=== PATIENT | female | born 1950 | race Hispanic/Latino ===

== ENCOUNTER 2024-06-07 14:48 | Inpatient (IN) | payer MEDICARE, OTHER ==
[2024-06-07 15:30] LABS: #Basophils 0.03 10x3/uL (0.0-0.2); %Basophils 0.3 % (0.0-1.0); %Monocytes 6.5 % (0.0-10.0); %Neutrophils 79.7 % (42.0-75.0); Hematocrit 32.2 % (36.0-47.0); Hemoglobin 9.9 g/dL (12.0-16.0); Mean Corpuscular HGB CONC 30.7 g/dL (32.0-36.0); Mean Corpuscular Hemoglobin 33.3 pg (27.0-31.0); Mean Corpuscular Volume 108.4 fL (78.0-98.0); Mean Platelet Volume 11.9 fL (7.4-10.4); Platelet Count 155 10x3/uL (130-400); RBC Distribution Width 15.5 % (11.5-14.5); Red Blood Cell (RBC) Count 2.97 mill/uL (4.20-5.40)
[2024-06-07 15:51] LABS: ALT (SGPT) 19 U/L (8-55); AST (SGOT) 27 U/L (5-34); Albumin 2.9 g/dL (3.4-4.8); Alkaline Phosphatase 82 U/L (40-110); Anion Gap 21 mmol/L (10-20); BUN (Urea Nitrogen) 42 mg/dL (9.8-20.1); Bilirubin, Total 0.5 mg/dL (0.2-1.2); Calc. Creatinine Clearance 0 mL/min (70-130); Carbon Dioxide 26 mmol/L (23-31); Chloride 100 mmol/L (98-107); Estimated GFR 7; Globulin 3.4 g/dL (2.4-3.5); Glucose 93 mg/dL (83-110); Magnesium 2.4 mg/dL (1.6-2.6); Protein, Total 6.3 g/dL (5.8-8.1); Sodium 142 mmol/L (136-145)
[2024-06-07 15:57] LABS: Troponin I 0.064 ng/mL (< 0.028)
[2024-06-07] MEDS ORDERED: dilTIAZem 25 MG/5 ML VIAL ONE (17:20)
[2024-06-07] MEDS ORDERED: Aspirin Chewable 81 MG TAB ONE (17:20)
[2024-06-07] MEDS ORDERED: dilTIAZem 125 MG/25 ML SDV ONE (17:21)
[2024-06-07] MEDS ORDERED: Cefepime 2 GM VIAL ONE (18:38)
[2024-06-07] MEDS ORDERED: Sodium Chloride 0.9% 100 ML ONE (18:38)
[2024-06-07 19:43] LABS: Troponin I 0.067 ng/mL (< 0.028)
[2024-06-08 00:14] VITALS: BMI 32.0
[2024-06-08] MEDS: Vancomycin (BATCH) 1.5 GM in Premix 1 BAG IVPB SCH (00:45)
[2024-06-08] MEDS: Haloperidol Lactate 5 MG/ML VIAL SLOW IVP SCH (01:02)
[2024-06-08] MEDS ORDERED: Ondansetron ODT 4 MG TAB PO PRN (01:30)
[2024-06-08] MEDS ORDERED: Calcium Carbonate 500 MG ChewTAB PO PRN (01:30)
[2024-06-08] MEDS ORDERED: Ondansetron PF 4 MG/2 ML Vial IVP PRN (01:30)
[2024-06-08] MEDS ORDERED: Acetaminophen 650 MG Suppository PR PRN (01:30)
[2024-06-08] MEDS ORDERED: Diltiazem HCl/D5W 125 MG in Premix 1 BAG IVPB SCH (01:45)
[2024-06-08] MEDS ORDERED: dilTIAZem 125 MG in Sodium Chloride 0.9% 100 ML IVPB SCH (01:45)
[2024-06-08 04:16] LABS: #Basophils 0.04 10x3/uL (0.0-0.2); %Basophils 0.4 % (0.0-1.0); %Eosinophils 0.4 % (0.0-10.0); %Lymphocytes 11.1 % (21.0-51.0); %Monocytes 5.9 % (0.0-10.0); %Neutrophils 81.5 % (42.0-75.0); Hematocrit 32.6 % (36.0-47.0); Hemoglobin 9.9 g/dL (12.0-16.0); Mean Corpuscular HGB CONC 30.4 g/dL (32.0-36.0); Mean Corpuscular Hemoglobin 33.9 pg (27.0-31.0); Mean Corpuscular Volume 111.6 fL (78.0-98.0); Mean Platelet Volume 12.1 fL (7.4-10.4); Platelet Count 177 10x3/uL (130-400); RBC Distribution Width 15.7 % (11.5-14.5); Red Blood Cell (RBC) Count 2.92 mill/uL (4.20-5.40)
[2024-06-08 04:38] LABS: Anion Gap 25 mmol/L (10-20); BUN (Urea Nitrogen) 48 mg/dL (9.8-20.1); Calc. Creatinine Clearance 9 mL/min (70-130); Calcium 6.8 mg/dL (7.8-10.44); Carbon Dioxide 22 mmol/L (23-31); Chloride 100 mmol/L (98-107); Estimated GFR 7; Glucose 77 mg/dL (83-110); Sodium 142 mmol/L (136-145)
[2024-06-08] MEDS: CALCIUM GLUC 1 GM/NS 50 ML 1 GM in Premix 1 BAG IVPB SCH (05:18)
[2024-06-08] MEDS: Acetaminophen 325 MG TAB PO SCH (06:09)
[2024-06-08] MEDS: Calcium Gluc 4.6 MEQ/10 ML (100 MG/ML) SLOW IVP ONE (06:09)
[2024-06-08] MEDS ORDERED: Ventilator Sedation Protocol 1 EACH FS PRN (07:12)
[2024-06-08] MEDS ORDERED: NOREPINEPHRINE 8 MG/250 ML-D5W 250 ML IVPB SCH (07:15)
[2024-06-08 07:30] LABS: Hematocrit 31.1 % (36.0-47.0)
[2024-06-08] MEDS ORDERED: Dextrose 10% in Water 1,000 ML IV SCH (07:30)
[2024-06-08] MEDS ORDERED: Morphine 2 MG/ML VIAL SLOW IVP PRN (07:45)
[2024-06-08] MEDS ORDERED: Propofol BOLUS 1,000 MG/100 ML VIAL IV PRN ×2 (07:45→09:00)
[2024-06-08] MEDS ORDERED: Fentanyl CADD 100 ML IV SCH (07:45)
[2024-06-08] MEDS ORDERED: Fentanyl BOLUS 250 ML IVPB PRN ×2 (07:45→09:00)
[2024-06-08] MEDS ORDERED: Propofol 1,000 MG/100 ML VIAL IV PRN ×2 (07:45→09:00)
[2024-06-08] MEDS ORDERED: Vancomycin Diaylsis Sliding Scale (Wt 71-99) FS SCH (07:45)
[2024-06-08 07:54] LABS: Actual Bicarbonate (HCO3a) 15.1 mEq/L (22-28); Base Excess (BEa) -10.9 mEq/L (-2.0 to +3.0); CO2 Tension 33.8 mmHg (35.0-45.0); Calcium, Ionized (arterial) 0.84 mmol/L (1.12-1.30); Hematocrit-ABG 29 % (36.0-47.0); Hemoglobin (Hb) 9.7 g/dL (12.0-16.0); O2 Tension (PaO2), arterial 334.1 mmHg (> 70.0); Potassium - ABG Lab 4.66 mmol/L (3.70-5.30); pH, Arterial 7.267 (7.35-7.45)
[2024-06-08 07:57] LABS: Puncture Site Right Brachial art
[2024-06-08 08:44] LABS: Hemoglobin 9.4 g/dL (12.0-16.0); Platelet Count 140 10x3/uL (130-400)
[2024-06-08] MEDS ORDERED: DISCONTINUE PREVIOUS NARCOTIC PAIN MEDICATIONS AND BENZODIAZEPINES FS SCH (09:00)
[2024-06-08] MEDS ORDERED: Vancomycin 1 GM in Sodium Chloride 0.9% 250 ML 300 ML IVPB SCH (09:00)
[2024-06-08] MEDS: Lorazepam 2 MG/ML VIAL SLOW IVP PRN ×2 (09:01→12:14)
[2024-06-08] MEDS: Famotidine 20 MG TAB PO SCH (09:04)
[2024-06-08] MEDS ORDERED: Dextrose 5% in Water 1,000 ML IV PRN (10:32)
[2024-06-08] MEDS ORDERED: Dextrose 50% Abboject 50 ML SYRINGE SLOW IVP PRN (10:32)
[2024-06-08] MEDS ORDERED: Glucagon 1 MG/ML KIT IM PRN (10:32)
[2024-06-08] MEDS ORDERED: Insulin Lispro 100 UNIT/ML 10 ML VIAL SC PRN (10:33)
[2024-06-08 10:39] LABS: HBSAB Concentration 49.83 mIU/mL; HBsAg Index 0.32 S/CO (0-0.99); Hep B Core Total Ab NONREACTIVE (NonReactive); Hep B Core Total Index 0.08 S/CO (0-0.79); Hep B Surf AB REACTIVE (NonReactive); Hep B Surf Ag NONREACTIVE S/CO (NonReactive); Hep C IgG Ab NONREACTIVE S/CO (NonReactive); Hep C Index 0.07 S/CO (0-0.79)
[2024-06-08] MEDS: Famotidine/PF 20 mg/2ml Vial SLOW IVP SCH (11:38)
[2024-06-08] MEDS: Aspirin 300 MG Suppository PR SCH (11:39)
[2024-06-08] MEDS: EPOETIN ALFA-EPBX (ESRD) 10,000 UNITS/ML VIAL SC SCH (12:25)
[2024-06-08] MEDS: Heparin 25,000 units/D5W 500 ML IVPB SCH (13:13)
[2024-06-08] MEDS: Amiodarone 150 MG in Dextrose 5% in Water 100 ML IVPB SCH (13:20)
[2024-06-08] MEDS: Amiodarone 450 MG in Dextrose 5% in Water 250 ML IVPB SCH (13:20)
[2024-06-08 13:33] LABS: Troponin I 0.315 ng/mL (< 0.028)
[2024-06-08] MEDS: Heparin 10,000 UNITS/ 10 ML VIAL SLOW IVP SCH (13:42)
[2024-06-08] MEDS: Fentanyl CADD 100 ML IV SCH (15:03)
[2024-06-08] MEDS: Cefepime 1 GM in Sodium Chloride 0.9% 100 ML IVPB SCH (17:42)
[2024-06-08 19:41] LABS: PTT 208.1 sec (22.9-36.1)
[2024-06-09 03:31] LABS: #Basophils 0.04 10x3/uL (0.0-0.2); %Basophils 0.3 % (0.0-1.0); %Eosinophils 0.3 % (0.0-10.0); %Lymphocytes 11.1 % (21.0-51.0); %Monocytes 4.6 % (0.0-10.0); Hematocrit 31.5 % (36.0-47.0); Hemoglobin 10.3 g/dL (12.0-16.0); Mean Corpuscular HGB CONC 32.7 g/dL (32.0-36.0); Mean Corpuscular Hemoglobin 33.6 pg (27.0-31.0); Mean Corpuscular Volume 102.6 fL (78.0-98.0); Mean Platelet Volume 11.9 fL (7.4-10.4); Platelet Count 181 10x3/uL (130-400); RBC Distribution Width 15.1 % (11.5-14.5); Red Blood Cell (RBC) Count 3.07 mill/uL (4.20-5.40)
[2024-06-09 03:54] LABS: ALT (SGPT) 53 U/L (8-55); AST (SGOT) 87 U/L (5-34); Albumin 2.3 g/dL (3.4-4.8); Alkaline Phosphatase 82 U/L (40-110); Anion Gap 22 mmol/L (10-20); BUN (Urea Nitrogen) 27 mg/dL (9.8-20.1); Bilirubin, Total 0.8 mg/dL (0.2-1.2); Calc. Creatinine Clearance 14 mL/min (70-130); Carbon Dioxide 21 mmol/L (23-31); Chloride 101 mmol/L (98-107); Estimated GFR 12; Globulin 2.6 g/dL (2.4-3.5); Glucose 83 mg/dL (83-110); Hemoglobin A1c 4.9 % (4.0-6.0); Magnesium 2.1 mg/dL (1.6-2.6); Phosphorus 2.6 mg/dL (2.3-4.7); Potassium 3.7 mmol/L (3.5-5.1); Protein, Total 4.9 g/dL (5.8-8.1); Sodium 140 mmol/L (136-145)
[2024-06-09 08:00] LABS: Actual Bicarbonate (HCO3a) 21.8 mEq/L (22-28); Base Excess (BEa) 2.3 mEq/L (-2.0 to +3.0); Calcium, Ionized (arterial) 0.88 mmol/L (1.12-1.30); Carboxyhemoglobin (COHb) 0.8 gm% (0.0-3.0); Hematocrit-ABG 33 % (36.0-47.0); Hemoglobin (Hb) 11.1 g/dL (12.0-16.0); O2 Tension (PaO2), arterial 112.3 mmHg (> 70.0); Potassium - ABG Lab 3.69 mmol/L (3.70-5.30)
[2024-06-09 08:05] LABS: CO2 Tension 20.5 mmHg (35.0-45.0); pH, Arterial 7.644 (7.35-7.45)
[2024-06-09 08:06] LABS: ALV-art Gradient 147.275 mmHg (0-20); Puncture Site Right Brachial art
[2024-06-09 08:17] LABS: Vancomycin, Trough 15.1 ug/mL
[2024-06-09] MEDS ORDERED: Aspirin 300 MG Suppository PR SCH (09:00)
[2024-06-09] MEDS ORDERED: Vancomycin Hemodialysis Sliding Scale FS SCH (10:30)
[2024-06-09] MEDS: Famotidine/PF 20 mg/2ml Vial SLOW IVP SCH (10:39)
[2024-06-09] MEDS: Famotidine 20 MG TAB PO SCH (10:39)
[2024-06-09 12:34] VITALS: BMI 29.9
[2024-06-09] MEDS: Vancomycin HCl 500 MG in Sodium Chloride 0.9% 100 ML IVPB SCH (17:32)
[2024-06-09] MEDS: Atorvastatin Calcium 40 MG TAB PO SCH (21:43)
[2024-06-10 02:33] VITALS: BP 114/82
[2024-06-10 05:44] LABS: #Basophils 0.03 10x3/uL (0.0-0.2); %Basophils 0.4 % (0.0-1.0); %Eosinophils 1.6 % (0.0-10.0); %Lymphocytes 12.5 % (21.0-51.0); %Monocytes 6.1 % (0.0-10.0); Hematocrit 27.7 % (36.0-47.0); Hemoglobin 8.7 g/dL (12.0-16.0); Mean Corpuscular HGB CONC 31.4 g/dL (32.0-36.0); Mean Corpuscular Hemoglobin 33.3 pg (27.0-31.0); Mean Corpuscular Volume 106.1 fL (78.0-98.0); Mean Platelet Volume 11.7 fL (7.4-10.4); Platelet Count 145 10x3/uL (130-400); RBC Distribution Width 15.7 % (11.5-14.5); Red Blood Cell (RBC) Count 2.61 mill/uL (4.20-5.40)
[2024-06-10 06:30] LABS: ALT (SGPT) 36 U/L (8-55); AST (SGOT) 43 U/L (5-34); Alkaline Phosphatase 70 U/L (40-110); Anion Gap 16 mmol/L (10-20); BUN (Urea Nitrogen) 17 mg/dL (9.8-20.1); Bilirubin, Total 0.7 mg/dL (0.2-1.2); Calc. Creatinine Clearance 14 mL/min (70-130); Calcium 6.8 mg/dL (7.8-10.44); Carbon Dioxide 25 mmol/L (23-31); Cardiac Risk 2.7 (Less than 4.5); Chloride 100 mmol/L (98-107); Cholesterol 104 mg/dl (< 200 Desired); Estimated GFR 15; Globulin 2.3 g/dL (2.4-3.5); Glucose 79 mg/dL (83-110); HDL Cholesterol 38 mg/dL (>60 Neg Risk); LDL Cholesterol, Calculated 50 mg/dL; Potassium 3.4 mmol/L (3.5-5.1); Protein, Total 4.3 g/dL (5.8-8.1); Sodium 138 mmol/L (136-145); Triglycerides 82 mg/dL (Less than 150)
[2024-06-10] MEDS: CALCIUM GLUC 1 GM/NS 50 ML 1 GM in Premix 1 BAG IVPB SCH (06:46)
[2024-06-10] MEDS: Calcium Gluconate 4.6 MEQ in Sodium Chloride 0.9% 100 ML IVPB ONE (07:05)
[2024-06-10 08:01] LABS: Hematocrit 29.5 % (36.0-47.0); Hemoglobin 9.4 g/dL (12.0-16.0); Platelet Count 159 10x3/uL (130-400)
[2024-06-10] MEDS: Aspirin 81 mg Enteric Coated Tablet PO SCH (09:14)
[2024-06-10] MEDS: Potassium Chloride 10 MEQ in Premix 1 BAG IVPB SCH (10:07)
[2024-06-10] MEDS: Amiodarone 200 MG TAB PO SCH ×2 (13:23→19:54)
[2024-06-10] MEDS: Midodrine HCl 5 MG TAB PO SCH (13:23)
[2024-06-10 20:51] LABS: PTT 126.3 sec (22.9-36.1)
[2024-06-10] MEDS ORDERED: Acetaminophen 650 MG/20.3 ML UDCUP PO PRN (22:27)
[2024-06-11 01:04] LABS: #Basophils 0.03 10x3/uL (0.0-0.2); %Basophils 0.3 % (0.0-1.0); %Eosinophils 1.1 % (0.0-10.0); %Lymphocytes 6.8 % (21.0-51.0); %Neutrophils 85.3 % (42.0-75.0); Hematocrit 29.5 % (36.0-47.0); Hemoglobin 9.4 g/dL (12.0-16.0); Mean Corpuscular HGB CONC 31.9 g/dL (32.0-36.0); Mean Corpuscular Hemoglobin 33.9 pg (27.0-31.0); Mean Corpuscular Volume 106.5 fL (78.0-98.0); Mean Platelet Volume 11.8 fL (7.4-10.4); Platelet Count 142 10x3/uL (130-400); RBC Distribution Width 15.5 % (11.5-14.5); Red Blood Cell (RBC) Count 2.77 mill/uL (4.20-5.40)
[2024-06-11 01:49] LABS: Phosphorus 3.2 mg/dL (2.3-4.7)
[2024-06-11 03:21] LABS: #Basophils 0.03 10x3/uL (0.0-0.2); %Basophils 0.2 % (0.0-1.0); %Eosinophils 0.8 % (0.0-10.0); %Monocytes 5.2 % (0.0-10.0); %Neutrophils 86.1 % (42.0-75.0); Hemoglobin 9.6 g/dL (12.0-16.0); Mean Corpuscular Hemoglobin 34.2 pg (27.0-31.0); Mean Corpuscular Volume 106.8 fL (78.0-98.0); Mean Platelet Volume 12.6 fL (7.4-10.4); Platelet Count 152 10x3/uL (130-400); RBC Distribution Width 15.5 % (11.5-14.5); Red Blood Cell (RBC) Count 2.81 mill/uL (4.20-5.40)
[2024-06-11] MEDS: Morphine 2 MG/ML VIAL SLOW IVP PRN (03:39)
[2024-06-11 05:03] LABS: ALT (SGPT) 32 U/L (8-55); AST (SGOT) 36 U/L (5-34); Albumin 2.2 g/dL (3.4-4.8); Alkaline Phosphatase 78 U/L (40-110); Anion Gap 21 mmol/L (10-20); BUN (Urea Nitrogen) 24 mg/dL (9.8-20.1); Bilirubin, Total 0.8 mg/dL (0.2-1.2); Calc. Creatinine Clearance 12 mL/min (70-130); Carbon Dioxide 22 mmol/L (23-31); Chloride 98 mmol/L (98-107); Estimated GFR 10; Globulin 2.5 g/dL (2.4-3.5); Glucose 90 mg/dL (83-110); Potassium 4.6 mmol/L (3.5-5.1); Protein, Total 4.7 g/dL (5.8-8.1); Sodium 136 mmol/L (136-145)
[2024-06-11 05:08] LABS: Calcium 6.7 mg/dL (7.8-10.44)
[2024-06-11] MEDS: Calcium Chloride 13.6 MEQ in Sodium Chloride 0.9% 100 ML IVPB SCH (06:09)
[2024-06-11 07:05] VITALS: TEMP 98.1
[2024-06-11] MEDS ORDERED: Lorazepam 2 MG/ML VIAL SLOW IVP PRN ×2 (10:54)
[2024-06-11] MEDS ORDERED: Acetaminophen 650 MG Suppository PR PRN (10:54)
[2024-06-11] MEDS ORDERED: Morphine 4 MG/ML VIAL SLOW IVP PRN (10:54)
[2024-06-11] MEDS ORDERED: Morphine 2 MG/ML VIAL SLOW IVP PRN (10:54)
[2024-06-11] MEDS ORDERED: Morphine 4 MG/ML VIAL ONE (13:03)
[2024-06-11] MEDS ORDERED: Lorazepam 2 MG/ML VIAL ONE (13:03)
== END 2024-06-11 12:59 | disposition hospice, inpatient (51) | DRG 280 ==
LOC: ERS 14:48 → ERHOLD 19:03 → PCU 23:50 → OBSVTOIN 06-08 01:30 → CCU 06-08 07:53
PROVIDERS: ADMIT Internal Medicine; ATTEND Family Medicine
PROC: 5A12012 Performance of Cardiac Output, Single, Manual (ICD-10-PCS; principal; 2024-06-08)
PROC: 0BH17EZ Insertion of Endotracheal Airway into Trachea, Via Natural or Artificial Opening (ICD-10-PCS; 2024-06-08)
PROC: 02HV33Z Insertion of Infusion Device into Superior Vena Cava, Percutaneous Approach (ICD-10-PCS; 2024-06-08)
PROC: 4A133R1 Monitoring of Arterial Saturation, Peripheral, Percutaneous Approach (ICD-10-PCS; 2024-06-08)
PROC: 3E043XZ Introduction of Vasopressor into Central Vein, Percutaneous Approach (ICD-10-PCS; 2024-06-08)
PROC: 5A1955Z Respiratory Ventilation, Greater than 96 Consecutive Hours (ICD-10-PCS; 2024-06-08)
DX: I48.20 Chronic atrial fibrillation, unspecified (principal); I46.9 Cardiac arrest, cause unspecified; I21.4 Non-ST elevation (NSTEMI) myocardial infarction; J96.01 Acute respiratory failure with hypoxia; J69.0 Pneumonitis due to inhalation of food and vomit; N18.6 End stage renal disease; I50.21 Acute systolic (congestive) heart failure; L97.419 Non-pressure chronic ulcer of right heel and midfoot with unspecified severity; L03.115 Cellulitis of right lower limb; R57.9 Shock, unspecified; L97.429 Non-pressure chronic ulcer of left heel and midfoot with unspecified severity; G93.49 Other encephalopathy; E87.70 Fluid overload, unspecified; Z66 Do not resuscitate; Z51.5 Encounter for palliative care; I25.5 Ischemic cardiomyopathy; E11.22 Type 2 diabetes mellitus with diabetic chronic kidney disease; E11.621 Type 2 diabetes mellitus with foot ulcer; E11.649 Type 2 diabetes mellitus with hypoglycemia without coma; E66.9 Obesity, unspecified; D63.8 Anemia in other chronic diseases classified elsewhere; Z99.2 Dependence on renal dialysis; Z88.8 Allergy status to other drugs, medicaments and biological substances; E11.65 Type 2 diabetes mellitus with hyperglycemia
CPT/HCPCS: 36415; 36416; 36600; 71045; 80048; 80053; 80061; 80202; 82805; 83036; 83605; 83735; 83880; 84100; 84145; 84443; 84484; 85025; 85730; 86704; 86706; 86803; 87040; 87340; 87428; 90935; 93005; 93010; 93306; 94002; 94003; 96365; 96366; 96375; 96376; 97139; G0257; J0282; J0613; J0692; J1630; J1644; J2060; J2272; J3010; J3370; J3480; J3490; J7070; Q5105

== ENCOUNTER 2024-06-11 13:14 | Inpatient (IN) | payer OTHER ==
[2024-06-11] MEDS: Morphine 4 MG/ML VIAL SLOW IVP SCH (13:14)
[2024-06-11] MEDS: Lorazepam 2 MG/ML VIAL SLOW IVP PRN (13:14)
[2024-06-11] MEDS ORDERED: Acetaminophen 650 MG Suppository PR PRN (13:30)
[2024-06-11] MEDS ORDERED: Scopolamine 1 mg/72 hour Patch TOP PRN (13:30)
[2024-06-11] MEDS ORDERED: Ondansetron PF 4 MG/2 ML Vial IVP PRN (13:30)
[2024-06-11] MEDS ORDERED: Lorazepam 2 MG/ML VIAL SLOW IVP SCH (13:30)
[2024-06-11] MEDS ORDERED: Morphine 4 MG/ML VIAL SLOW IVP SCH (13:30)
[2024-06-11] MEDS ORDERED: Bisacodyl 10 MG SUPP PR PRN (13:32)
[2024-06-11] MEDS ORDERED: Morphine 2 MG/ML VIAL SLOW IVP PRN (13:32)
[2024-06-11] MEDS: Lorazepam 2 MG/ML VIAL SLOW IVP SCH (13:36)
== END 2024-06-11 14:58 | disposition expired | DRG 951 ==
LOC: CCU 13:14
PROVIDERS: ADMIT Family Medicine; ATTEND Family Medicine
DX: Z51.5 Encounter for palliative care (principal); N18.6 End stage renal disease; I21.4 Non-ST elevation (NSTEMI) myocardial infarction; J96.01 Acute respiratory failure with hypoxia; J69.0 Pneumonitis due to inhalation of food and vomit; I48.91 Unspecified atrial fibrillation; E11.22 Type 2 diabetes mellitus with diabetic chronic kidney disease; Z99.2 Dependence on renal dialysis; D63.1 Anemia in chronic kidney disease; I46.9 Cardiac arrest, cause unspecified; E87.70 Fluid overload, unspecified; I25.5 Ischemic cardiomyopathy; E11.65 Type 2 diabetes mellitus with hyperglycemia
CPT/HCPCS: J2060; J2272